=== PATIENT | male | born 1945 ===

== ENCOUNTER 2020-11-17 09:38 | Day surgery (SDC) | payer OTHER ==
[~2020-11-17 09:38] MED LIST: VASOTEC20 M1 PO; [UNRECOGNIZED DRUG - OTHER] PO
[2020-11-17] MEDS ORDERED: PERCOCET 5-3251 EACH PO (15:41)
== END 2020-11-17 19:35 | disposition home or self-care (01) ==
LOC: CIR.AMB 09:38
PROVIDERS: ATTEND Surgery
DX: T83.490A Other mechanical complication of implanted penile prosthesis, initial encounter (principal); Z20.822 Contact with and (suspected) exposure to COVID-19
CPT/HCPCS: 54410; C1813